=== PATIENT | male | born 1990 | race Caucasian/White ===

== ENCOUNTER → 2020-12-17 09:41 | Outpatient (CLI) | payer OTHER, MEDICAID, SELFPAY ==
[2020-12-17 19:05] LABS: Add Manual Diff / Slide Review NO; Basophils Absolute Auto 0 /uL (0-100); Basophils Percent Auto 0.5 % (0-2); Eosinophils Absolute Auto 100 /uL (0-450); Eosinophils Percent Auto 1.2 % (2-4); Hematocrit 41.9 % (41-53); Hemoglobin 14.3 g/dL (13.5-17.5); Lymphocytes Absolute Auto 1100 /uL (1100-4500); Lymphocytes Percent Auto 12.8 % (25-40); Mean Corpuscular HGB Conc 34.2 % (30-36); Mean Corpuscular Volume 84.8 fL (80-100); Monocytes Absolute Auto 700 /uL (0-900); Monocytes Percent Auto 8.2 % (3-14); Neutrophils Absolute Auto 6800 /uL (1500-7000); Neutrophils Percent Auto 77.3 % (50-75); Platelet Count 231 X10^3/uL (150-400); Red Blood Cell Count 4.94 X10^6/uL (4.5-5.9); Red Cell Distribution Width 13.6 % (11.6-14.8); White Blood Cell Count 8.8 X10^3/uL (4.5-11.0)
[2020-12-20 02:08] LABS: Chlamydia trachomatis NAA Negative (Negative); Neisseria gonorrhoeae NAA Negative (Negative)
== END ==
PROVIDERS: PCP Family Medicine; Visit Provider Physician Assistant Medical
DX: Z11.3 Encounter for screening for infections with a predominantly sexual mode of transmission (principal)
CPT/HCPCS: 85025; 87086; 87491; 87591

== ENCOUNTER 2022-04-11 03:47 | Emergency (ER) | payer OTHER, MEDICAID, SELFPAY ==
[2022-04-11 04:01] VITALS: BP 170/85; PULSE 98; RESP 18; TEMP 36.4; O2SAT 100; BMI 27.7
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
[2022-04-11 05:00] LABS: Add Manual Diff / Slide Review NO; Basophils Absolute Auto 100 /uL (0-100); Basophils Percent Auto 0.5 % (0-2); Eosinophils Absolute Auto 200 /uL (0-450); Eosinophils Percent Auto 1.3 % (2-4); Hematocrit 31.5 % (41-53); Hemoglobin 10.4 g/dL (13.5-17.5); Lymphocytes Absolute Auto 1400 /uL (1100-4500); Lymphocytes Percent Auto 10.7 % (25-40); Mean Corpuscular HGB Conc 33.1 % (30-36); Mean Corpuscular Hemoglobin 24.3 PG (26-34); Mean Corpuscular Volume 73.4 fL (80-100); Monocytes Absolute Auto 800 /uL (0-900); Monocytes Percent Auto 6.4 % (3-14); Neutrophils Absolute Auto 10500 /uL (1500-7000); Neutrophils Percent Auto 81.1 % (50-75); Platelet Count 549 X10^3/uL (150-400); Red Cell Distribution Width 15.8 % (11.6-14.8); White Blood Cell Count 12.9 X10^3/uL (4.5-11.0)
[2022-04-11 05:12] LABS: Lactate (Lactic Acid) 1.1 mmol/L (0.7-2.1)
[2022-04-11 05:13] LABS: Alanine Aminotransferase 38 IU/L (<50); Albumin 3.9 g/dL (3.5-5.0); Albumin Globulin Ratio 0.7 (1.0-2.8); Alkaline Phosphatase 140 U/L (38-126); Aspartate Aminotransferase 34 IU/L (17-59); Bilirubin Total 0.3 mg/dL (0.2-1.3); Blood Urea Nitrogen 14 mg/dL (9-20); C-Reactive Protein Quant 7.1 mg/dL (<1.0); Calcium 9.1 mg/dL (8.4-10.2); Carbon Dioxide 30 mmol/L (22-32); Chloride 100 mmol/L (98-107); Estimated Glomerular Filt Rate > 60 mL/min (>60); Globulin 5.7 g/dL (1.7-4.1); Glucose 100 mg/dL (70-100); HEMOLYSIS < 15 (0-50); Sodium 140 mmol/L (137-145); Total Protein 9.6 g/dL (6.3-8.2)
[2022-04-11] MEDS: IBUPROFEN 400 MG TABLET 800 MG PO (05:14)
[2022-04-11 05:20] VITALS: PULSE 99; RESP 19; O2SAT 98
--- NOTE | 2022-04-11 05:24 | PC.NURSE ---
Large meplex dressing applied to pt wound on posterior left forearm. Pt appreciative of this.
[2022-04-11] MEDS: AMPICILLIN/SULBACTAM 3 GM 3 GM in SODIUM CHLORIDE 0.9% 100 ML IV (06:18)
[2022-04-11] MEDS: TRIMETH/SULFA 160/800 (DS) TABLET 2 TAB PO (06:19)
[2022-04-11 07:27] VITALS: BP 130/66; PULSE 90; RESP 18; O2SAT 93
== END 2022-04-11 07:28 | disposition home or self-care (01) ==
PROVIDERS: Emergency Provider Emergency Medicine; PCP Physician Assistant Medical
DX: L03.115 Cellulitis of right lower limb (principal); F42.4 Excoriation (skin-picking) disorder; F15.10 Other stimulant abuse, uncomplicated
CPT/HCPCS: 36415; 80053; 83605; 85025; 86140; 87040; 96365; 99284; J0295

== ENCOUNTER 2022-08-10 19:53 | Emergency (ER) | payer OTHER, MEDICAID, SELFPAY ==
[2022-08-10 20:07] VITALS: PULSE 98; RESP 30; O2SAT 99
== END 2022-08-10 20:18 | disposition left against medical advice (07) ==
PROVIDERS: Emergency Provider Emergency Medicine; PCP Physician Assistant Medical
CPT/HCPCS: 99281

== ENCOUNTER 2023-03-30 23:12 | Emergency (ER) | payer OTHER, MEDICAID, SELFPAY ==
[2023-03-30 23:25] VITALS: BP 142/70; PULSE 88; RESP 18; TEMP 36.6; O2SAT 100; BMI 29.8
--- NOTE | 2023-03-31 00:41 | ED.LOWEXIN ---
HPI - Extremity Injury (Lower) General Chief Complaint: Extremity Injury, Lower Stated Complaint: adema/cellulitus/ legs have open wounds Time Seen by Provider: 03/30/23 23:39 Source: patient and family Mode of arrival: Wheelchair History of Present Illness HPI Narrative: Patient is a 32-year-old male who is here for evaluation of bilateral lower extremity swelling and open wounds and redness to both of his legs with left being greater than right. He does have history of polysubstance abuse, methamphetamine abuse and opiate abuse. He states he smokes fentanyl every day. The swelling in his lower extremities in the open wounds in his lower extremities have been there for months. He feels that things have been worsening over the past several weeks. He denies any fevers. He states he is in chronic pain. He states that his lower extremity issues have kept him from going to rehab/being involved in the methadone clinic. He does not have a primary care doctor. No trauma. He was admitted to an outside hospital sometime within the past couple months for cellulitis in his lower extremities. He is not currently on any antibiotics. Related Data Home Medications Medication Instructions Recorded Confirmed buprenorphine 8 mg-naloxone 2 mg 1 film sublingual DAILY 12/15/20 01/26/21 sublingual film (Suboxone) sildenafil 100 mg tablet (Viagra) 100 mg PO DAILY PRN 12/15/20 01/26/21 Previous Rx's Medication Instructions Recorded albuterol sulfate 90 mcg/actuation 2 puff inhalation Q6H PRN asthmna 12/29/20 aerosol inhaler #18 grams baclofen 20 mg tablet 20 mg PO TID #90 tabs 12/29/20 gabapentin 600 mg tablet 600 mg PO TID #90 tabs 12/29/20 tizanidine 4 mg tablet 4 mg PO TID PRN muscle spasticity 12/29/20 #90 tabs fluticasone propionate 110 See Rx Instructions .Route 12/05/21 mcg/actuation HFA aerosol inhaler .COMPLEX #12 grams (Flovent HFA) trazodone 150 mg tablet See Rx Instructions .Route 01/18/22 .COMPLEX #90 tabs doxycycline hyclate 100 mg tablet 100 mg PO BID 10 days #20 tabs 03/31/23 Allergies Allergy/AdvReac Type Severity Reaction Status Date / Time No Known Drug Allergies Allergy Verified 01/26/21 15:34 PET DANDER Allergy Unknown Uncoded 01/26/21 15:34 Review of Systems Constitutional Constitutional: Reports system reviewed and no additional complaints, except as documented Musculoskeletal Musculoskeletal: Reports system reviewed and no additional complaints, except as documented Integumentary/Breasts Skin/Breast: Reports system reviewed and no additional complaints, except as documented Hematologic/Lymphatic On Anticoagulants: No Patient History Medical History Cervical spinal cord injury Impaired mobility Methamphetamine abuse Neurogenic bladder Surgical History H/O laminectomy Social History Smoking Status: Current some day smoker Smoking Status: Current some day smoker tobacco type: pipe alcohol intake frequency: 0-2 drinks per day Substance Use Type: crack/cocaine, heroin, painkillers, methamphetamine and other Exam Initial Vital Signs Initial Vital Signs: Vital Signs Temperature 98 F 03/30/23 23:25 Pulse Rate 88 03/30/23 23:25 Respiratory Rate 18 03/30/23 23:25 Blood Pressure 142/70 H 03/30/23 23:25 Pulse Oximetry 100 03/30/23 23:25 Oxygen Delivery Method Room Air 03/30/23 23:25 Const General: disheveled Resp Effort & Inspection: normal respiratory effort Cardio Rate: regular rate Skin Other: Patient with multiple ulcerations on bilateral lower extremities. Left is worse than right. Does have drainage. No abscess noted. There is eschar noted on the ulcerations right lower extremity. There located medial aspect around the medial malleoli bilaterally. Patient has redness of the left lower extremity that extends up to his knee to his toes. Neuro General: patient alert and patient awake Extrem Other: Edema bilateral lower extremities. Left slightly worse than right Course Orders Ordered: ED Orders 03/30/23 23:34 Consult to STAFF ANTISUBMARINE OFFICER - Blasting Worker Stat 03/31/23 00:42 Wound Culture and Gram Stain Stat 03/31/23 00:43 Basic Metabolic Panel Stat Complete Blood Count AUTO DIFF Stat Discontinued Medications Doxycycline Hyclate (Doxycycline Hyclate 100 Mg Tablet) 100 mg PO NOW ONE Stop: 03/31/23 00:43 Last Admin: 03/31/23 01:01 Dose: 100 mg Documented By: SB Vital Signs Vital signs: Vital Signs - 8 hr 03/30/23 23:25 Temperature 98 F Pulse Rate 88 Respiratory Rate 18 Blood Pressure 142/70 H Pulse Oximetry 100 Oxygen Delivery Method Room Air MDM - Extremity Injury (Lower) MDM Narrative Medical decision making narrative: Patient is afebrile. He is not tachycardic and he is not tachypneic. The wounds on his lower extremities are obviously not new. This is confirmed by him and he states this has been going on for the past several months. He does have redness of his left lower extremity that is consistent with a cellulitis. I have low concern for abscess. Given the nature of his wounds I do feel that admission to the hospital would be warranted however the patient states that he does not want to be admitted to the hospital because he is concerned about withdrawing from his fentanyl use. He states this is what happened the last time he was admitted to the hospital. He states that it is difficult for his pain to be controlled as a inpatient and he feels that if he gets admitted to the hospital he is most likely just going to leave once the withdrawal symptoms start. He understands the risks of not being admitted to the hospital. The plan will be is to place him on oral antibiotics. He was given a dose here in the emergency department and a prescription was sent to the pharmacy of his choice. He was given strict return precautions and he was instructed that he can return to the emergency department at any point if things worsen. Discharge Plan Departure Patient Disposition: Home Clinical Impression: Cellulitis Instructions: DI for Cellulitis -- Adult Activity Restrictions/Additional Instructions: After our discussion you opted not to be admitted to the hospital. It is important that you take the antibiotics as directed. I also highly recommend that you continue with your plan to follow through with the clinic to help with your opioid abuse. Return to the emergency department for new symptoms. Prescriptions: New doxycycline hyclate 100 mg tablet 100 mg PO BID 10 Days Qty: 20 0RF No Action albuterol sulfate 90 mcg/actuation HFA aerosol inhaler 2 puff inhalation Q6H PRN (Reason: asthmna) Qty: 18 0RF baclofen 20 mg tablet 20 mg PO TID Qty: 90 2RF gabapentin 600 mg tablet 600 mg PO TID Qty: 90 3RF tizanidine 4 mg tablet 4 mg PO TID PRN (Reason: muscle spasticity) Qty: 90 0RF Flovent HFA 110 mcg/actuation HFA aerosol inhaler See Rx Instructions .ROUTE .COMPLEX Qty: 12 3RF Dose Instruction: INHALE 2 PUFFS BY MOUTH TWO TIMES A DAY Rx Instructions: INHALE 2 PUFFS BY MOUTH TWO TIMES A DAY trazodone 150 mg tablet See Rx Instructions .ROUTE .COMPLEX Qty: 90 0RF Dose Instruction: TAKE ONE TABLET BY MOUTH EVERY DAY AT BEDTIME NEEDED FOR SLEEP Rx Instructions: TAKE ONE TABLET BY MOUTH EVERY DAY AT BEDTIME NEEDED FOR SLEEP buprenorphine-naloxone [Suboxone] 8-2 mg film 1 film sublingual DAILY sildenafil [Viagra] 100 mg tablet 100 mg PO DAILY PRN Rx Instructions: administer 30 minutes to 4 hours before activity Referrals: Lauren Mckinley PA-C [Primary Care Provider] - Stand Alone Forms: Patient Portal/API
[2023-03-31] MEDS: DOXYCYCLINE HYCLATE 100 MG TABLET PO (01:01)
--- NOTE | 2023-03-31 01:50 | PC.NURSE ---
Unable to collect labs r/t to poor veins. aware and decision made to cancel labs. Wound culture was collected from left lower leg sore and this was sent to lab. At discharge non-adherent pads used with light wrap to keep sores protected. Patient tolerates transferring to wheelchair without assistance and uses a cane for short distance walks. He was assisted out to family car by wheelchair but able to enter car independently.
== END 2023-03-31 02:10 | disposition home or self-care (01) ==
PROVIDERS: Emergency Provider Emergency Medicine; PCP Physician Assistant Medical
DX: L03.116 Cellulitis of left lower limb (principal); L03.115 Cellulitis of right lower limb
CPT/HCPCS: 87070; 87077; 87186; 87205; 99283

== ENCOUNTER 2023-05-26 00:41 | Emergency (ER) | payer OTHER, MEDICAID, SELFPAY ==
--- NOTE | 2023-05-26 00:45 | ED.GENADULT ---
HPI - General Adult General Chief complaint: Medical Clearance Stated complaint: fit for care home Time Seen by Provider: 05/26/23 00:44 Source: patient and police Mode of arrival: Wheelchair Limitations: no limitations History of Present Illness HPI narrative: Patient has a 32-year-old male. He is here for a fit for care home evaluation secondary to ulcers on his legs. He does have a history of drug abuse and intravenous drug use. He is ulcerations on both of his lower extremities. These are not new ulcerations but he states that they have been draining and has a foul smell. No trauma noted to the areas. Related Data Home Medications Medication Instructions Recorded Confirmed buprenorphine 8 mg-naloxone 2 mg 1 film sublingual DAILY 12/15/20 01/26/21 sublingual film (Suboxone) sildenafil 100 mg tablet (Viagra) 100 mg PO DAILY PRN 12/15/20 01/26/21 Previous Rx's Medication Instructions Recorded albuterol sulfate 90 mcg/actuation 2 puff inhalation Q6H PRN asthmna 12/29/20 aerosol inhaler #18 grams baclofen 20 mg tablet 20 mg PO TID #90 tabs 12/29/20 gabapentin 600 mg tablet 600 mg PO TID #90 tabs 12/29/20 tizanidine 4 mg tablet 4 mg PO TID PRN muscle spasticity 12/29/20 #90 tabs fluticasone propionate 110 See Rx Instructions .Route 12/05/21 mcg/actuation HFA aerosol inhaler .COMPLEX #12 grams (Flovent HFA) trazodone 150 mg tablet See Rx Instructions .Route 01/18/22 .COMPLEX #90 tabs Allergies Allergy/AdvReac Type Severity Reaction Status Date / Time No Known Drug Allergies Allergy Verified 01/26/21 15:34 PET DANDER Allergy Unknown Uncoded 01/26/21 15:34 Review of Systems Musculoskeletal Musculoskeletal: Reports system reviewed and no additional complaints, except as documented Integumentary/Breasts Skin/Breast: Reports system reviewed and no additional complaints, except as documented Patient History Medical History Methamphetamine abuse Neurogenic bladder Impaired mobility Cervical spinal cord injury Surgical History H/O laminectomy Social History (Reviewed 05/26/23 @ 02:05 by MARQUEZ Huynh Smoking Status: Current some day smoker Smoking Status: Current some day smoker tobacco type: pipe alcohol intake frequency: 0-2 drinks per day Substance Use Type: crack/cocaine, heroin, painkillers, methamphetamine and other Exam Initial Vital Signs Initial Vital Signs: Vital Signs Temperature 98.5 F 05/26/23 00:53 Pulse Rate 89 05/26/23 00:53 Respiratory Rate 18 05/26/23 00:53 Blood Pressure 155/92 H 05/26/23 00:53 Pulse Oximetry 98 05/26/23 00:53 Oxygen Delivery Method Room Air 05/26/23 00:53 Const General: disheveled Skin Other: Patient has multiple wounds in various stages of healing throughout his upper and lower extremities. He has two 3 cm round ulcerations on his left leg and other smaller ulcerations on his right lower extremity. There was no surrounding erythema. Neuro General: patient alert and patient awake Course Orders Ordered: ED Orders 05/26/23 00:45 Wound Culture and Gram Stain Stat Wound Culture and Gram Stain Stat Vital Signs Vital signs: Vital Signs - 8 hr 05/26/23 00:53 Temperature 98.5 F Pulse Rate 89 Respiratory Rate 18 Blood Pressure 155/92 H Pulse Oximetry 98 Oxygen Delivery Method Room Air Medical Decision Making [facility] Narrative Medical decision making narrative: The wounds on his lower extremities are certainly not acute in nature. They have the appearance of being there for an extended period of time along with the other wounds throughout his body. He is most likely related to his drug abuse and hygiene. Cultures were obtained of the wounds. We will hold on treating with any antibiotics until these cultures result. There is no surrounding erythema concerning for cellulitis. The place feel that the patient most likely will be released in the morning. I confirmed the patient's phone number in his chart and informed him that we will contact him that number we need to start any antibiotics. Discharge Plan Departure Patient Disposition: Released, Other Clinical Impression: Medical clearance for incarceration, Bilateral leg ulcer Activity Restrictions/Additional Instructions: Jerome has been found fit for confinement. We did take cultures of the wounds on your legs. We will contact you at the cell phone number that is in the chart if we need to start any antibiotics. Prescriptions: No Action albuterol sulfate 90 mcg/actuation HFA aerosol inhaler 2 puff inhalation Q6H PRN (Reason: asthmna) Qty: 18 0RF baclofen 20 mg tablet 20 mg PO TID Qty: 90 2RF gabapentin 600 mg tablet 600 mg PO TID Qty: 90 3RF tizanidine 4 mg tablet 4 mg PO TID PRN (Reason: muscle spasticity) Qty: 90 0RF Flovent HFA 110 mcg/actuation HFA aerosol inhaler See Rx Instructions .ROUTE .COMPLEX Qty: 12 3RF Dose Instruction: INHALE 2 PUFFS BY MOUTH TWO TIMES A DAY Rx Instructions: INHALE 2 PUFFS BY MOUTH TWO TIMES A DAY trazodone 150 mg tablet See Rx Instructions .ROUTE .COMPLEX Qty: 90 0RF Dose Instruction: TAKE ONE TABLET BY MOUTH EVERY DAY AT BEDTIME NEEDED FOR SLEEP Rx Instructions: TAKE ONE TABLET BY MOUTH EVERY DAY AT BEDTIME NEEDED FOR SLEEP buprenorphine-naloxone [Suboxone] 8-2 mg film 1 film sublingual DAILY sildenafil [Viagra] 100 mg tablet 100 mg PO DAILY PRN Rx Instructions: administer 30 minutes to 4 hours before activity Referrals: Lauren Mckinley PA-C [Primary Care Provider] - Stand Alone Forms: Patient Portal/API
[2023-05-26 00:53] VITALS: BP 155/92; PULSE 89; RESP 18; TEMP 36.9; O2SAT 98
== END 2023-05-26 01:15 | disposition home or self-care (01) ==
PROVIDERS: Emergency Provider Emergency Medicine; PCP Physician Assistant Medical
DX: Z02.89 Encounter for other administrative examinations (principal); L97.919 Non-pressure chronic ulcer of unspecified part of right lower leg with unspecified severity; F15.10 Other stimulant abuse, uncomplicated
CPT/HCPCS: 87070; 87077; 87147; 87186; 87205; 99282; 99283

== ENCOUNTER 2023-07-26 17:05 | Emergency (ER) | payer OTHER, MEDICAID, SELFPAY ==
[2023-07-26 17:10] VITALS: BP 141/84; PULSE 104; RESP 14; TEMP 36.1; O2SAT 100; BMI 26.4
--- NOTE | 2023-07-26 17:36 | ED_ITS ---
HPI - Skin/Abscess/Foreign Bdy General Chief complaint: Skin/Abscess/Foreign Body Stated complaint: Fit for Nursing Home Time Seen by Provider: 07/26/23 17:27 Source: patient Mode of arrival: Wheelchair Limitations: no limitations History of Present Illness HPI narrative: Patient is a 33-year-old male who arrives in the emergency department under police custody for evaluation of a fit for confinement. He has a chronic IV drug abuser. Has chronic lower extremity wounds. He states he was actually seen here recently and prescribed antibiotics but he does not think that his legs are infected. He states they actually appear somewhat better than what they have in the past. Denies any fevers. Does have lower extremity swelling but he states that it is because he has been sleeping in his car and not lying flat. When he sleeps flat his legs are much less swollen. He denies fevers. No chest pain or shortness of breath. Related Data Home Medications Medication Instructions Recorded Confirmed buprenorphine 8 mg-naloxone 2 mg 1 film sublingual DAILY 12/15/20 01/26/21 sublingual film (Suboxone) sildenafil 100 mg tablet (Viagra) 100 mg PO DAILY PRN 12/15/20 01/26/21 Previous Rx's Medication Instructions Recorded albuterol sulfate 90 mcg/actuation 2 puff inhalation Q6H PRN asthmna 12/29/20 aerosol inhaler #18 grams baclofen 20 mg tablet 20 mg PO TID #90 tabs 12/29/20 gabapentin 600 mg tablet 600 mg PO TID #90 tabs 12/29/20 tizanidine 4 mg tablet 4 mg PO TID PRN muscle spasticity 12/29/20 #90 tabs fluticasone propionate 110 See Rx Instructions .Route 12/05/21 mcg/actuation HFA aerosol inhaler .COMPLEX #12 grams (Flovent HFA) trazodone 150 mg tablet See Rx Instructions .Route 01/18/22 .COMPLEX #90 tabs ibuprofen 800 mg tablet 800 mg PO Q6H PRN pain #30 tabs 07/26/23 Allergies Allergy/AdvReac Type Severity Reaction Status Date / Time No Known Drug Allergies Allergy Verified 07/26/23 17:16 PET DANDER Allergy Unknown Uncoded 01/26/21 15:34 Review of Systems Constitutional Constitutional: Reports system reviewed and no additional complaints, except as documented Musculoskeletal Musculoskeletal: Reports system reviewed and no additional complaints, except as documented Integumentary/Breasts Skin/Breast: Reports system reviewed and no additional complaints, except as documented Neurologic Neurologic: Reports system reviewed and no additional complaints, except as documented Hematologic/Lymphatic On Anticoagulants: No Patient History Medical History Methamphetamine abuse Neurogenic bladder Impaired mobility Cervical spinal cord injury Surgical History H/O laminectomy Social History Smoking Status: Current some day smoker Smoking Status: Current some day smoker tobacco type: pipe alcohol intake frequency: 0-2 drinks per day Substance Use Type: crack/cocaine, heroin, painkillers, methamphetamine and other Exam Initial Vital Signs Initial Vital Signs: Vital Signs Temperature 97.0 F L 07/26/23 17:10 Pulse Rate 104 H 07/26/23 17:10 Respiratory Rate 14 07/26/23 17:10 Blood Pressure 141/84 H 07/26/23 17:10 Pulse Oximetry 100 07/26/23 17:10 Oxygen Delivery Method Room Air 07/26/23 17:10 Const General: cooperative and comfortable Skin Other: Patient with multiple wounds on his lower extremities. They are covered with eschar is. His lower extremities are swollen and erythematous but not warm to the touch. Extrem General: edema Course Orders Ordered: ED Orders 07/26/23 17:20 Consult to MANAGEMENT ENGINEER - Pararescue Manager Stat Vital Signs Vital signs: Vital Signs - 8 hr 07/26/23 17:10 07/26/23 17:57 Temperature 97.0 F L Pulse Rate 104 H 98 H Respiratory Rate 14 Blood Pressure 141/84 H 114/57 L Pulse Oximetry 100 99 Oxygen Delivery Method Room Air Room Air MDM - Skin/Abscess/Foreign Bdy MDM Narrative Medical decision making narrative: Patient has multiple lower extremity wounds. These appear to be chronic. I agree with the patient that his legs do not appear to be cellulitic. Patient is found fit for confinement although I do recommend that he keep his legs clean with soap and water. He was given a prescription for ibuprofen. Return precautions given as well. Discharge Plan Departure Patient Disposition: Home Clinical Impression: Chronic ulcer of left lower extremity, Medical clearance for incarceration Instructions: Skin Wound Activity Restrictions/Additional Instructions: Jerome has been found fit for confinement. His wounds today do not appear infected however I do recommend frequent cleaning with soap and water. He may need bandages to cover the wounds because they are oozing. I recommend ibuprofen/Motrin 800 mg every 8 hours with food as needed for discomfort. Prescriptions: New ibuprofen 800 mg tablet 800 mg PO Q6H PRN (Reason: pain) Qty: 30 0RF No Action albuterol sulfate 90 mcg/actuation HFA aerosol inhaler 2 puff inhalation Q6H PRN (Reason: asthmna) Qty: 18 0RF baclofen 20 mg tablet 20 mg PO TID Qty: 90 2RF gabapentin 600 mg tablet 600 mg PO TID Qty: 90 3RF tizanidine 4 mg tablet 4 mg PO TID PRN (Reason: muscle spasticity) Qty: 90 0RF Flovent HFA 110 mcg/actuation HFA aerosol inhaler See Rx Instructions .ROUTE .COMPLEX Qty: 12 3RF Dose Instruction: INHALE 2 PUFFS BY MOUTH TWO TIMES A DAY Rx Instructions: INHALE 2 PUFFS BY MOUTH TWO TIMES A DAY trazodone 150 mg tablet See Rx Instructions .ROUTE .COMPLEX Qty: 90 0RF Dose Instruction: TAKE ONE TABLET BY MOUTH EVERY DAY AT BEDTIME NEEDED FOR SLEEP Rx Instructions: TAKE ONE TABLET BY MOUTH EVERY DAY AT BEDTIME NEEDED FOR SLEEP buprenorphine-naloxone [Suboxone] 8-2 mg film 1 film sublingual DAILY sildenafil [Viagra] 100 mg tablet 100 mg PO DAILY PRN Rx Instructions: administer 30 minutes to 4 hours before activity Referrals: Lauren Mckinley PA-C [Primary Care Provider] - Stand Alone Forms: Patient Portal/API
[2023-07-26 17:57] VITALS: BP 114/57; PULSE 98; O2SAT 99
--- NOTE | 2023-07-26 18:05 | PC.NURSE ---
Pt has multiple open wounds on bilateral lower legs. SEe Dr Ramos assessment for specifics of wounds.
== END 2023-07-26 17:57 | disposition home or self-care (01) ==
PROVIDERS: Emergency Provider Emergency Medicine; PCP Physician Assistant Medical
DX: Z02.89 Encounter for other administrative examinations (principal); L97.919 Non-pressure chronic ulcer of unspecified part of right lower leg with unspecified severity
CPT/HCPCS: 99281; 99282

== ENCOUNTER 2023-08-31 01:03 | Emergency (ER) | payer OTHER, MEDICAID, SELFPAY ==
[2023-08-31 01:11] VITALS: BP 173/94; PULSE 102; RESP 22; TEMP 36.6; O2SAT 98; BMI 26.4
--- NOTE | 2023-08-31 01:15 | PC.NURSE ---
Stasis ulcers X 2 inner aspect left lower leg measuring 5cm.X8cm. & 3.5 cm. diameter. Also 2.5 cm & 1.25 cm. diameter wounds medial left foot. Stasis ulcer 6.5 cm.X4cm. inner aspect right lower leg. All wounds scrubbed w/ chlorhexidine scrub brush, rinsed w/ SNS & padded dry. Telfa dressings, kerlex gauze applied to assorted wounds.
--- NOTE | 2023-08-31 01:20 | ED_ITS ---
HPI - Wound/Laceration General Chief Complaint: Wound/Laceration Stated Complaint: cellulitus in legs wants to have them looked at Time Seen by Provider: 08/31/23 01:10 Source: patient Mode of arrival: Ambulatory History of Present Illness HPI narrative: Patient is a 33-year-old male. Has been seen here in the emergency department multiple times in the past for ulcerations on his lower extremities. He has also been seen for these wounds for fit for confinement physicals as well. Last time that he was seen here in the emergency department was approximately 1 month ago for a fit for confinement. I evaluated him at that time. The wounds appeared to be chronic. He was not started on antibiotics. No cultures were obtained. He was found fit for confinement. He was back in the emergency department today. He states he has been working with a drug and alcohol abuse counselor who was concerned by the looks of his legs and advised that he come back in to be evaluated. Patient states that he does not think that his legs are necessarily worse appearing than what they have been. He states he is on Suboxone and has not been using opioids. Denies any fevers. Several months ago he did have cultures obtained. He was grown out both Pseudomonas and MRSA. Review of the notes show that after the cultures were resulted he was started on Cipro. He states he did not take any of those antibiotics. Related Data Home Medications Medication Instructions Recorded Confirmed buprenorphine 8 mg-naloxone 2 mg 1 film sublingual DAILY 12/15/20 01/26/21 sublingual film (Suboxone) sildenafil 100 mg tablet (Viagra) 100 mg PO DAILY PRN 12/15/20 01/26/21 Previous Rx's Medication Instructions Recorded albuterol sulfate 90 mcg/actuation 2 puff inhalation Q6H PRN asthmna 12/29/20 aerosol inhaler #18 grams baclofen 20 mg tablet 20 mg PO TID #90 tabs 12/29/20 gabapentin 600 mg tablet 600 mg PO TID #90 tabs 12/29/20 tizanidine 4 mg tablet 4 mg PO TID PRN muscle spasticity 12/29/20 #90 tabs fluticasone propionate 110 See Rx Instructions .Route 12/05/21 mcg/actuation HFA aerosol inhaler .COMPLEX #12 grams (Flovent HFA) trazodone 150 mg tablet See Rx Instructions .Route 01/18/22 .COMPLEX #90 tabs ibuprofen 800 mg tablet 800 mg PO Q6H PRN pain #30 tabs 07/26/23 Allergies Allergy/AdvReac Type Severity Reaction Status Date / Time No Known Drug Allergies Allergy Verified 07/26/23 17:16 PET DANDER Allergy Unknown Uncoded 01/26/21 15:34 Review of Systems Constitutional Constitutional: Reports system reviewed and no additional complaints, except as documented Musculoskeletal Musculoskeletal: Reports system reviewed and no additional complaints, except as documented Integumentary/Breasts Skin/Breast: Reports system reviewed and no additional complaints, except as documented Neurologic Neurologic: Reports system reviewed and no additional complaints, except as documented Hematologic/Lymphatic On Anticoagulants: No Patient History Medical History Methamphetamine abuse Neurogenic bladder Impaired mobility Cervical spinal cord injury Surgical History H/O laminectomy Social History Smoking Status: Former smoker Smoking Status: Former smoker tobacco type: pipe alcohol intake frequency: 0-2 drinks per day Substance Use Type: crack/cocaine, heroin, painkillers, methamphetamine, prescription drug and other Exam Initial Vital Signs Initial Vital Signs: Vital Signs Temperature 97.8 F 08/31/23 01:11 Pulse Rate 102 H 08/31/23 01:11 Respiratory Rate 22 08/31/23 01:11 Blood Pressure 173/94 H 08/31/23 01:11 Pulse Oximetry 98 08/31/23 01:11 Oxygen Delivery Method Room Air 08/31/23 01:11 Skin Other: Patient does have multiple ulcerations in bilateral lower extremities. The largest 1 is located on the medial/posterior aspect of the right lower extremity. He also has ulcerations on his right lower extremity. There was minimal surrounding erythema. No drainage. Extrem Other: Patient does have bilateral swelling of his lower extremities Course Orders Ordered: ED Orders 08/31/23 02:01 Wound Culture and Gram Stain Stat Discontinued Medications Ciprofloxacin (Ciprofloxacin 250 Mg Tablet) 500 mg PO NOW ONE Stop: 08/31/23 01:33 Last Admin: 08/31/23 01:59 Dose: 500 mg Documented By: ALE Ibuprofen (Ibuprofen 400 Mg Tablet) 800 mg PO NOW ONE Stop: 08/31/23 02:03 Last Admin: 08/31/23 02:05 Dose: 800 mg Documented By: SHAMAR Vital Signs Vital signs: Vital Signs - 8 hr 08/31/23 01:11 Temperature 97.8 F Pulse Rate 102 H Respiratory Rate 22 Blood Pressure 173/94 H Pulse Oximetry 98 Oxygen Delivery Method Room Air MDM - Wound/Laceration Medical Records Attestation: I reviewed the patient's medical records. MDM Narrative Medical decision making narrative: Review of medical record show that he had cultures from 03/31/2023 that were positive and 05/26/2023 that were positive as well. I did review those cultures. He was the cultures from 05/26/2023 where Cipro was ordered for him. He states he has not taken any antibiotics. He does not know if he still has those antibiotics. I did re-culture his wound again today. We will place him on Cipro. First dose was given here in the ER. A prescription was sent to the pharmacy of his choice. I informed the patient that he was going to need wound care follow-up as this is most likely what is going to be the best to help with healing. A wound care referral was placed. There was no indication for admission to the hospital. His wounds were cleaned by nursing staff and bandages were placed. He was given return precautions. He expressed understanding and agreement with plan. Discharge Plan Departure Patient Disposition: Home Clinical Impression: Bilateral leg ulcer Activity Restrictions/Additional Instructions: A prescription for antibiotics was sent to [facility]. Please start taking it as directed. We did re-culture 1 of the wounds today and if we need to change antibiotics based on this we will contact you and let you know. I also placed a referral for you to see wound care. I do think that wound care is very important in his most likely going to be the most beneficial thing to get these wounds to heal. You can contact them [phone] to schedule a follow-up appointment. You can do some wound care at home. Keeping the areas clean with soap and water and trying to keep your legs elevated as much as possible will be helpful as well. It is also important follow-up with a primary care doctor. Prescriptions: No Action albuterol sulfate 90 mcg/actuation HFA aerosol inhaler 2 puff inhalation Q6H PRN (Reason: asthmna) Qty: 18 0RF baclofen 20 mg tablet 20 mg PO TID Qty: 90 2RF gabapentin 600 mg tablet 600 mg PO TID Qty: 90 3RF tizanidine 4 mg tablet 4 mg PO TID PRN (Reason: muscle spasticity) Qty: 90 0RF Flovent HFA 110 mcg/actuation HFA aerosol inhaler See Rx Instructions .ROUTE .COMPLEX Qty: 12 3RF Dose Instruction: INHALE 2 PUFFS BY MOUTH TWO TIMES A DAY Rx Instructions: INHALE 2 PUFFS BY MOUTH TWO TIMES A DAY trazodone 150 mg tablet See Rx Instructions .ROUTE .COMPLEX Qty: 90 0RF Dose Instruction: TAKE ONE TABLET BY MOUTH EVERY DAY AT BEDTIME NEEDED FOR SLEEP Rx Instructions: TAKE ONE TABLET BY MOUTH EVERY DAY AT BEDTIME NEEDED FOR SLEEP ibuprofen 800 mg tablet 800 mg PO Q6H PRN (Reason: pain) Qty: 30 0RF buprenorphine-naloxone [Suboxone] 8-2 mg film 1 film sublingual DAILY sildenafil [Viagra] 100 mg tablet 100 mg PO DAILY PRN Rx Instructions: administer 30 minutes to 4 hours before activity Referrals: Lauren Mckinley PA-C [Primary Care Provider] - Stand Alone Forms: Patient Portal/API
[2023-08-31] MEDS: CIPROFLOXACIN 250 MG TABLET 500 MG PO (01:59)
[2023-08-31] MEDS: IBUPROFEN 400 MG TABLET 800 MG PO (02:05)
== END 2023-08-31 02:10 | disposition home or self-care (01) ==
PROVIDERS: Emergency Provider Emergency Medicine; PCP Physician Assistant Medical
DX: L97.929 Non-pressure chronic ulcer of unspecified part of left lower leg with unspecified severity (principal); L97.919 Non-pressure chronic ulcer of unspecified part of right lower leg with unspecified severity; B95.0 Streptococcus, group A, as the cause of diseases classified elsewhere; B96.5 Pseudomonas (aeruginosa) (mallei) (pseudomallei) as the cause of diseases classified elsewhere; B95.62 Methicillin resistant Staphylococcus aureus infection as the cause of diseases classified elsewhere
CPT/HCPCS: 87070; 87075; 87077; 87147; 87186; 87205; 99283; 99284

== ENCOUNTER 2023-11-29 13:47 | Emergency (ER) | payer OTHER, MEDICAID, SELFPAY ==
[2023-11-29 13:53] VITALS: BP 130/78; PULSE 93; RESP 16; TEMP 36.4; O2SAT 96; BMI 27.1
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
[2023-11-29 15:11] VITALS: BP 124/74; PULSE 89; RESP 16; O2SAT 97
== END 2023-11-29 15:13 | disposition home or self-care (01) ==
PROVIDERS: Emergency Provider Physician Assistant Medical; PCP Physician Assistant Medical
DX: L97.929 Non-pressure chronic ulcer of unspecified part of left lower leg with unspecified severity (principal); L97.919 Non-pressure chronic ulcer of unspecified part of right lower leg with unspecified severity
CPT/HCPCS: 87070; 87075; 87077; 87147; 87186; 87205; 99281; 99282